=== PATIENT | male | born 1935 | race Caucasian/White ===

== ENCOUNTER 2016-10-14 01:48 | Emergency (ER) | payer MEDICARE ==
--- NOTE | ~2016-10-14 | CT4 ---
[facility] A Service of [facility] RADIOLOGY TEXT RESULTS PATIENT: COMFORT MAGALLANES LOCATION: [facility] : 33 UNIT #: [id number] AGE: [address]: Randal Buckner MD SEX: M ORDER DR: [id number] [facility]. [place], [place] [address] [id number] MR#: [id number] Acc #: [id number] NAME: COMFORT MAGALLANES. : 1935 SEX: M STUDY DATE/TIME: 10/14/2016 3:35 UNIT: [facility] ROOM: STUDY DESCRIPTION: CT Abd and Pelv Wo Cont Attending Physician: Randal Buckner M.D. Ordering Physician: Randal Buckner M.D. Primary Care Physician: Rober Carr M.D. MEDICAL IMAGING REPORT This report is preliminary unless electronic signature is present EXAM CT abdomen and pelvis without contrast, 10/14/2016. HISTORY 81-year-old male in the ED complaining of persistent right side body wall pain after a fall [address] examination of the abdomen and pelvis was performed without oral or IV contrast. This CT exam was performed with one or more of the following radiation dose reduction techniques: automatic exposure control, adjustment of mA and/or kV according to patient size, and iterative reconstruction. COMPARISON CT abdomen/pelvis, 02/21/2016. FINDINGS ABDOMEN FINDINGS: The examination shows a mild superior endplate vertebral compression fracture deformity involving the anterior portion of the L1 vertebral body with little to no loss of vertebral body height. This was not present on the previous study. No additional evidence of acute lumbar fracture. No visible fracture of ribs, sacrum, pelvis, or hips. Liver, pancreas, and spleen are normal in size and appearance without contrast. Exophytic cyst arising from the lower pole left kidney without change. Normal-caliber abdominal aorta. Small bowel and colon are normal in caliber and appearance. Large volume stool throughout the colon. PELVIS FINDINGS: Marked prostate enlargement. Nondistended urinary bladder. [facility] A Service of [facility] RADIOLOGY TEXT RESULTS PATIENT: COMFORT MAGALLANES [facility] [id number] : 33 UNIT #: [id number] AGE: [address]: Randal Buckner MD SEX: M ORDER DR: Limited lower chest images show a moderate sized hiatal hernia. No basilar pneumothorax or pleural effusion. IMPRESSION 1. Minimal superior endplate vertebral compression fracture involving the anterior portion of the L1 vertebral body with little to no loss of vertebral body height. No additional acute osseous abnormality is seen involving the lumbar spine, lower ribs, sacrum, pelvis or hips. 2. No additional evidence of acute traumatic injury within the abdomen or pelvis. 3. Moderate sized hiatal hernia. 4. Marked prostate enlargement. 5. Large volume stool throughout the colon. Dictated by... Vitor Shaw M.D. THIS IS AN ELECTRONICALLY VERIFIED REPORT Vitor Shaw M.D. at 10/14/2016 9:56 PM CARLOS/briseida TD: 10/14/2016 12:10 JOB #: [id number] MEDICAL IMAGING REPORT Page 1 of 1 COPY
[2016-10-14 04:33] LABS: URINE SOURCE CLEAN CATCH
[2016-10-14 04:42] LABS: URINE APPEARANCE CLEAR; URINE BILIRUBIN NEG (NEG); URINE BLOOD NEG (NEG); URINE COLOR YELLOW; URINE GLUCOSE 250 MG/DL (NEG); URINE KETONE TRACE (NEG); URINE LEUKOCYTE ESTERASE NEG (NEG); URINE NITRATE NEG (NEG); URINE PROTEIN NEG (NEG); URINE SPECIFIC GRAVITY 1.022 (1.003-1.035)
[2016-10-14 04:46] LABS: CULTURE INDICATED? NO
== END 2016-10-14 05:30 | disposition home or self-care (01) ==
LOC: CED 01:48
PROVIDERS: Emergency Medicine
DX: S32.019A Unspecified fracture of first lumbar vertebra, initial encounter for closed fracture (principal); W18.30XA Fall on same level, unspecified, initial encounter; Y92.9 Unspecified place or not applicable
CPT/HCPCS: 74176; 81003; 99284